=== PATIENT | female | born 1945 | race Caucasian/White ===

== ENCOUNTER 2019-08-07 07:32 | Outpatient (CLI) | payer OTHER ==
[~2019-08-07 07:32] MED LIST: AMBIEN10 MG; CYMBALTA20 MG; LIPITOR40 MG; MEDROL4 MG PO; OMEPRAZOLE20 M1; XANAX XR2 MG
== END 2019-08-07 07:37 | disposition home or self-care (01) ==
LOC: SONOGRAMA 07:32
DX: R10.84 Generalized abdominal pain (principal); N18.3 Chronic kidney disease, stage 3 (moderate); R31.29 Other microscopic hematuria

== ENCOUNTER 2019-09-05 08:07 | Emergency (ER) | payer OTHER ==
[~2019-09-05] VITALS: Ht 157.5 cm; Wt 61.2 kg
[2019-09-05] MEDS ORDERED: PANADOL EXTRA500 MG (08:27)
[2019-09-05] MEDS ORDERED: DRAMAMINE LESS25 MG (08:28)
[2019-09-05] MEDS ORDERED: VITAMIN D2400 UNIT (08:28)
[2019-09-05] MEDS ORDERED: ACID CONTROL150 MG (08:29)
[2019-09-05] MEDS ORDERED: PRILOSEC OTC20 MG (08:29)
[2019-09-05] MEDS ORDERED: NORTRIPTYLINE (08:30)
== END 2019-09-05 11:55 | disposition home or self-care (01) ==
LOC: ER 08:07
DX: B34.9 Viral infection, unspecified (principal)

== ENCOUNTER 2019-09-13 14:42 | Outpatient (CLI) | payer OTHER ==
[~2019-09-13 14:42] MED LIST changes: +ACID CONTROL150 MG; +DRAMAMINE LESS25 MG; +NORTRIPTYLINE; +PANADOL EXTRA500 MG; +PRILOSEC OTC20 MG; +VITAMIN D2400 UNIT
== END 2019-09-13 14:46 | disposition home or self-care (01) ==
LOC: RAD 14:42
DX: J30.0 Vasomotor rhinitis (principal); J98.01 Acute bronchospasm; R05 Cough; J32.8 Other chronic sinusitis

== ENCOUNTER 2019-09-17 13:03 | Outpatient (CLI) | payer OTHER | END 2019-09-17 13:10 | disposition home or self-care (01) | LOC: MAMO-SONO 13:03 | DX: Z85.3 Personal history of malignant neoplasm of breast (principal) ==

== ENCOUNTER 2021-04-13 18:41 | Emergency (ER) | payer OTHER ==
[~2021-04-13] VITALS: Ht 157.5 cm; Wt 61.7 kg
== END 2021-04-13 21:47 | disposition home or self-care (01) ==
LOC: ER 18:41
DX: S90.31XA Contusion of right foot, initial encounter (principal); M12.571 Traumatic arthropathy, right ankle and foot; W20.8XXA Other cause of strike by thrown, projected or falling object, initial encounter; Y93.89 Activity, other specified; Y92.018 Other place in single-family (private) house as the place of occurrence of the external cause; Y99.8 Other external cause status

== ENCOUNTER → 2021-06-19 | Emergency (ER) | payer OTHER ==
[~2021-06-19] VITALS: Ht 157.5 cm; Wt 63.0 kg
== END | disposition home or self-care (01) ==
LOC: ER 16:36
DX: U07.1 COVID-19 (principal)

== ENCOUNTER 2022-03-20 18:43 | Emergency (ER) | payer OTHER ==
[~2022-03-20] VITALS: Ht 157.5 cm; Wt 62.1 kg
== END 2022-03-20 21:43 | disposition home or self-care (01) ==
LOC: ER 18:43
DX: R10.13 Epigastric pain (principal); Z88.1 Allergy status to other antibiotic agents; Z88.6 Allergy status to analgesic agent; E78.00 Pure hypercholesterolemia, unspecified; G30.9 Alzheimer's disease, unspecified; F02.80 Dementia in other diseases classified elsewhere, unspecified severity, without behavioral disturbance, psychotic disturbance, mood disturbance, and anxiety

== ENCOUNTER 2022-04-25 10:59 | Emergency (ER) | payer OTHER ==
[~2022-04-25] VITALS: Ht 157.5 cm; Wt 62.6 kg
== END 2022-04-25 18:30 | disposition home or self-care (01) ==
LOC: ER 10:59
DX: R10.84 Generalized abdominal pain (principal); K59.00 Constipation, unspecified; Z88.8 Allergy status to other drugs, medicaments and biological substances

== ENCOUNTER 2023-08-22 11:39 | Outpatient (CLI) | payer OTHER | END 2023-08-22 11:44 | disposition home or self-care (01) | LOC: RAD 11:39 | PROVIDERS: ATTEND Specialist | DX: C50.412 Malignant neoplasm of upper-outer quadrant of left female breast (principal); Z88.1 Allergy status to other antibiotic agents; Z88.6 Allergy status to analgesic agent ==

== ENCOUNTER 2023-08-22 12:07 | Outpatient (CLI) | payer OTHER | END 2023-08-22 14:16 | disposition home or self-care (01) | LOC: EKG 12:07 | PROVIDERS: ATTEND Specialist | DX: C50.412 Malignant neoplasm of upper-outer quadrant of left female breast (principal); I10 Essential (primary) hypertension ==

== ENCOUNTER 2023-08-30 20:01 | Emergency (ER) | payer OTHER ==
[~2023-08-30] VITALS: Ht 157.5 cm; Wt 65.8 kg
== END 2023-08-30 21:55 | disposition home or self-care (01) ==
LOC: ER 20:01
DX: L29.8 Other pruritus (principal); T78.8XXA Other adverse effects, not elsewhere classified, initial encounter; X58.XXXA Exposure to other specified factors, initial encounter; Z88.8 Allergy status to other drugs, medicaments and biological substances

== ENCOUNTER 2023-09-13 09:00 | Inpatient (IN) | payer OTHER ==
[~2023-09-13] VITALS: Ht 157.5 cm; Wt 63.5 kg
[2023-09-13] MEDS ORDERED: PLAVIX75 MG PO (13:19)
[2023-09-13] MEDS ORDERED: ECOTRIN81 MG PO (13:20)
== END 2023-09-20 09:20 | disposition home or self-care (01) | DRG 581 ==
LOC: O/R 09-19 06:49 → SURH 09-19 09:00 → SURG 09-19 16:17
PROVIDERS: ADMIT Specialist; ATTEND Specialist
PROC: 0HBU0ZZ Excision of Left Breast, Open Approach (ICD-10-PCS; 2023-09-19)
PROC: 07B60ZZ Excision of Left Axillary Lymphatic, Open Approach (ICD-10-PCS; principal; 2023-09-19 11:45)
DX: C50.412 Malignant neoplasm of upper-outer quadrant of left female breast (principal); Z20.822 Contact with and (suspected) exposure to COVID-19

== ENCOUNTER 2023-11-02 07:26 | Outpatient (CLI) | payer OTHER ==
[~2023-11-02 07:26] MED LIST changes: +ECOTRIN81 MG PO; +PLAVIX75 MG PO
== END 2023-11-02 07:29 | disposition home or self-care (01) ==
LOC: NUCLEAR 07:26
PROVIDERS: ATTEND Internal Medicine Hematology & Oncology
DX: C50.111 Malignant neoplasm of central portion of right female breast (principal); C50.412 Malignant neoplasm of upper-outer quadrant of left female breast; E78.2 Mixed hyperlipidemia; F33.9 Major depressive disorder, recurrent, unspecified; K29.70 Gastritis, unspecified, without bleeding
CPT/HCPCS: 78815; A9552

== ENCOUNTER 2024-07-02 10:05 | Outpatient (CLI) | payer OTHER ==
[~2024-07-02 10:05] MED LIST changes: +AMOX-CLAV 875-1 EAC1 PO; +QC TUSSIN DM L118 ML PO
[2024-07-02 10:50] LABS: HEMATOCRIT 31.5 % (36.0-45.00); HEMOGLOBIN 10.9 g/dL (12.0-15.00); MEAN CELL VOLUME 87.4 fL (80.00-100.00); MEAN CORPUSCULAR HEMOGLOBIN 30.2 pg (27.00-32.0); MEAN CORPUSCULAR HGB CONC 34.5 g/dl (32.0-36.0); PLATELET COUNT 288 K/uL (150-450); RED CELL DISTRIBUTION WIDTH 14.1 % (11.5-14.5)
[2024-07-02 11:32] LABS: ALBUMIN 3.8 gm/dL (3.4-5.0); BILIRUBIN TOTAL 0.34 mg/dL (0.3-1.2); CALCIUM 9.1 mg/dL (8.5-10.1); CREATININE SERUM 1.06 mg/dL (0.55-1.02); GFR 50.13; GLOBULINA 3.5 G/DL (2.4-3.5); POTASSIUM 4.11 mEq/L (3.5-5.1); T4 FREE 0.77 NG/ML (0.76-1.46); TOTAL PROTEIN 7.3 gm/dL (6.4-8.2)
[2024-07-02 12:54] LABS: MANUAL PLATELET COUNT 356
[2024-07-02 12:55] LABS: PLATELET ESTIMATE NORMAL (NORMAL)
[2024-07-02 13:41] LABS: FOLIC ACID > 20.00 ng/ml (4.78-20)
[2024-07-03 09:10] LABS: ANTI THYROID PEROXIDASE < 9 IU/mL (0-34); CA 125 7.9 U/mL (0.0-38.1); CA 15-3 23.2 U/mL (0.0-25.0); CA 19-9 24 U/mL (0-35)
[2024-07-03 11:08] LABS: hgb a 97.5 % (96.4-98.8); hgb a2 2.5 % (1.8-3.2); hgb f 0 % (0.0-2.0); hgb s 0 % (0.0)
[2024-07-04 09:09] LABS: INTRINSIC FACTOR BLOCKING AB 1.1 AU/mL (0.0-1.1)
[2024-07-04 15:11] LABS: PARIETAL CELL ANTIBODIES 1.6 Units (0.0-20.0)
== END 2024-07-02 10:14 | disposition home or self-care (01) ==
LOC: LAB 10:05
PROVIDERS: ATTEND Internal Medicine Hematology & Oncology
DX: C50.111 Malignant neoplasm of central portion of right female breast (principal); E03.9 Hypothyroidism, unspecified; C50.412 Malignant neoplasm of upper-outer quadrant of left female breast; E78.2 Mixed hyperlipidemia; F33.9 Major depressive disorder, recurrent, unspecified; K29.70 Gastritis, unspecified, without bleeding; D50.8 Other iron deficiency anemias; R79.9 Abnormal finding of blood chemistry, unspecified; R74.02 Elevation of levels of lactic acid dehydrogenase [LDH]; I10 Essential (primary) hypertension; K76.89 Other specified diseases of liver; D63.8 Anemia in other chronic diseases classified elsewhere; C50.919 Malignant neoplasm of unspecified site of unspecified female breast; D51.1 Vitamin B12 deficiency anemia due to selective vitamin B12 malabsorption with proteinuria; D50.1 Sideropenic dysphagia; D63.1 Anemia in chronic kidney disease

== ENCOUNTER → 2024-09-27 10:10 | Outpatient (CLI) | payer OTHER ==
[2024-09-27 11:12] LABS: HEMATOCRIT 31.5 % (36.0-45.00); HEMOGLOBIN 10.7 g/dL (12.0-15.00); MEAN CELL VOLUME 89.9 fL (80.00-100.00); MEAN CORPUSCULAR HEMOGLOBIN 30.6 pg (27.00-32.0); PLATELET COUNT 286 K/uL (150-450); RED BLOOD COUNT 3.51 M/uL (4.00-6.00); RED CELL DISTRIBUTION WIDTH 12.7 % (11.5-14.5)
[2024-09-27 11:16] LABS: PH,URINE 5.5 (5.0-8.0); URINE APPEARANCE Clear; URINE BILIRRUBIN Negative (NEGATIVE); URINE BLOOD Negative; URINE COLOR Yellow; URINE GLUCOSE Negative (NEGATIVE); URINE KETONE Negative (NEGATIVE); URINE LEUKOCYTE Negative; URINE NITRATE Negative; URINE PROTEIN Negative (NEGATIVE); URINE UROBILINOGEN 0.2 E.U./dl
[2024-09-27 11:17] LABS: URINE BACTERIA 13.8 uL (0.0-1933); URINE EPITHELIAL CELLS 2.1 uL (0.0-38.8); URINE WBC 2.1 uL (0.0-23.2)
[2024-09-27 11:45] LABS: URINE CAST 1.37 uL (0.0-1.40); URINE RBC 1.5 uL (0.0-20.8)
[2024-09-27 11:54] LABS: INR < 0.93; PARTIAL THROMBOPLASTIN TIME 26.9 SECONDS (22.0-34.0); PROTHROMBIN TIME 10.1 SECONDS (9.0-11.5)
[2024-09-27 12:22] LABS: MANUAL PLATELET COUNT 468
[2024-09-27 12:23] LABS: PLATELET ESTIMATE INCREASED (NORMAL)
[2024-09-27 12:24] LABS: ALBUMIN 3.8 gm/dL (3.4-5.0); ALKALINE PHOSPHATASE 57 U/L (50-136); ALT/SGPT 28 U/L (12-78); ANION GAP 9 (10.0-20.0); AST/SGOT 25 U/L (15-37); BILIRUBIN TOTAL 0.27 mg/dL (0.3-1.2); BILIRUBIN,CONJUGATED < 0.10 mg/dL (0.0-0.2); BILIRUBIN,UNCONJUGATED 0.17 mg/dL (0.0-0.6); BLOOD UREA NITROGEN 19 mg/dL (7-18); BUN CREA RATIO 18 (7.0-25.0); CALCIUM 9.2 mg/dL (8.5-10.1); CARBON DIOXIDE 28 mEq/L (21-32); CHLORIDE 104 mmol/L (98-107); CHOL HDL RATIO 2.8 (0-5.0); CHOLESTEROL 178 mg/dL (0-200); CREATININE SERUM 1.05 mg/dL (0.55-1.02); GFR 50.56; GLOBULINA 3.4 G/DL (2.4-3.5); GLUCOSE FASTING 105 mg/dL (65-100); HDL 63 mg/dl (40-60); LDH 175 U/L (84-246); LDL 100 mg/dl (0-130); OSMOLALITY SERUM 275 MOSM/KG (275-295); POTASSIUM 4.99 mEq/L (3.5-5.1); SODIUM 136 mmol/L (136-145); TOTAL PROTEIN 7.2 gm/dL (6.4-8.2); TRIGLYCERIDES 77 mg/dL (0-150); VLDL 15 (0-39)
[2024-09-27 12:34] LABS: FREE TRIODOTIRONINE 2.37 pg/ml (2.18-3.98); T4 FREE 0.76 NG/ML (0.76-1.46)
== END | disposition home or self-care (01) ==
LOC: LAB 10:10
PROVIDERS: ATTEND Internal Medicine Hematology & Oncology
DX: C50.111 Malignant neoplasm of central portion of right female breast (principal); C50.412 Malignant neoplasm of upper-outer quadrant of left female breast; E78.2 Mixed hyperlipidemia; F33.9 Major depressive disorder, recurrent, unspecified; K29.70 Gastritis, unspecified, without bleeding; D50.8 Other iron deficiency anemias; R79.9 Abnormal finding of blood chemistry, unspecified; K76.89 Other specified diseases of liver; R74.02 Elevation of levels of lactic acid dehydrogenase [LDH]; I10 Essential (primary) hypertension; C50.919 Malignant neoplasm of unspecified site of unspecified female breast; C25.9 Malignant neoplasm of pancreas, unspecified; R97.0 Elevated carcinoembryonic antigen [CEA]; E03.9 Hypothyroidism, unspecified; N39.9 Disorder of urinary system, unspecified; E11.65 Type 2 diabetes mellitus with hyperglycemia; D64.9 Anemia, unspecified; D68.8 Other specified coagulation defects; K75.81 Nonalcoholic steatohepatitis (NASH); N39.0 Urinary tract infection, site not specified

== ENCOUNTER → 2024-11-14 | Emergency (ER) | payer OTHER ==
[~2024-11-14] VITALS: Ht 157.5 cm; Wt 65.8 kg
[~2024-11-14] MED LIST changes: +ACID REDUCER20 M1 PO; +PEPCID AC20 MG PO; +[UNRECOGNIZED DRUG - OTHER]; +[UNRECOGNIZED DRUG - OTHER] PO
== END | disposition left against medical advice (07) ==
LOC: ER 16:42
DX: Z53.21 Procedure and treatment not carried out due to patient leaving prior to being seen by health care provider (principal)

== ENCOUNTER 2025-01-10 11:19 | Outpatient (CLI) | payer OTHER ==
[2025-01-10 12:31] LABS: PH,URINE 5.5 (5.0-8.0); URINE APPEARANCE Clear; URINE BILIRRUBIN Negative (NEGATIVE); URINE BLOOD Negative; URINE COLOR Yellow; URINE GLUCOSE Negative (NEGATIVE); URINE KETONE Negative (NEGATIVE); URINE LEUKOCYTE Negative; URINE NITRATE Negative; URINE PROTEIN Negative (NEGATIVE); URINE UROBILINOGEN 0.2 E.U./dl
[2025-01-10 12:32] LABS: HEMATOCRIT 31.2 % (36.0-45.00); MEAN CELL VOLUME 89.6 fL (80.00-100.00); MEAN CORPUSCULAR HEMOGLOBIN 31.6 pg (27.00-32.0); MEAN CORPUSCULAR HGB CONC 35.3 g/dl (32.0-36.0); PLATELET COUNT 311 K/uL (150-450); RED BLOOD COUNT 3.49 M/uL (4.00-6.00); RED CELL DISTRIBUTION WIDTH 13.1 % (11.5-14.5)
[2025-01-10 12:35] LABS: URINE BACTERIA 12.2 uL (0.0-1933); URINE CAST 6.92 uL (0.0-1.40); URINE EPITHELIAL CELLS 2.6 uL (0.0-38.8); URINE RBC 2.5 uL (0.0-20.8)
[2025-01-10 13:02] LABS: URIC ACID 4.7 mg/dL (2.5-7.5)
[2025-01-10 13:04] LABS: % SATURACION 32.7 % (15-50); ALBUMIN 3.8 gm/dL (3.4-5.0); BILIRUBIN TOTAL 0.3 mg/dL (0.3-1.2); CALCIUM 9.1 mg/dL (8.5-10.1); CHOL HDL RATIO 3.5 (0-5.0); CREATININE SERUM 1.18 mg/dL (0.55-1.02); FREE TRIODOTIRONINE 2.3 pg/ml (2.18-3.98); GFR 44.18; GLOBULINA 3.6 G/DL (2.4-3.5); PHOSPHOROUS 3.2 mg/dL (2.5-4.9); POTASSIUM 4.42 mEq/L (3.5-5.1); T4 FREE 0.82 NG/ML (0.76-1.46); TOTAL PROTEIN 7.4 gm/dL (6.4-8.2); TSH 1.8 uIU/mL (0.358-3.74)
[2025-01-10 13:15] LABS: C-REACTIVE PROTEIN 0.67 MG/DL (0.00-0.29)
[2025-01-10 13:24] LABS: ERYTHROCYTE SEDIMENTATION RATE 48 mm/hr
[2025-01-10 13:36] LABS: VITAMIN D3 25 HYDROXY 93.49 ng/ml (30-120)
[2025-01-10 14:52] LABS: MANUAL PLATELET COUNT 482
[2025-01-10 14:53] LABS: PLATELET ESTIMATE INCREASED (NORMAL)
== END 2025-01-10 11:36 | disposition home or self-care (01) ==
LOC: LAB 11:19
PROVIDERS: ATTEND Internal Medicine Hematology & Oncology
DX: C50.111 Malignant neoplasm of central portion of right female breast (principal); C50.412 Malignant neoplasm of upper-outer quadrant of left female breast; E78.2 Mixed hyperlipidemia; F33.9 Major depressive disorder, recurrent, unspecified; K29.70 Gastritis, unspecified, without bleeding; D50.8 Other iron deficiency anemias; R79.9 Abnormal finding of blood chemistry, unspecified; I10 Essential (primary) hypertension; R74.02 Elevation of levels of lactic acid dehydrogenase [LDH]; K76.89 Other specified diseases of liver; D51.8 Other vitamin B12 deficiency anemias; C50.919 Malignant neoplasm of unspecified site of unspecified female breast; R97.8 Other abnormal tumor markers; C56.9 Malignant neoplasm of unspecified ovary; R97.0 Elevated carcinoembryonic antigen [CEA]; E03.9 Hypothyroidism, unspecified; E11.21 Type 2 diabetes mellitus with diabetic nephropathy; N39.0 Urinary tract infection, site not specified; D64.9 Anemia, unspecified; J45.998 Other asthma; E11.65 Type 2 diabetes mellitus with hyperglycemia; M35.3 Polymyalgia rheumatica; E55.9 Vitamin D deficiency, unspecified; N18.30 Chronic kidney disease, stage 3 unspecified; D63.1 Anemia in chronic kidney disease; E78.5 Hyperlipidemia, unspecified

== ENCOUNTER 2025-05-02 10:07 | Outpatient (CLI) | payer OTHER ==
[2025-05-02 11:00] LABS: BASO % 0.5 % (0.1-1.2); EOS # 0.06 (0.04-0.54); EOS % 1.1 % (0.7-7.0); HEMATOCRIT 29.8 % (34.1-44.9); HEMOGLOBIN 10.3 g/dL (11.2-15.7); LYMPH # 1.47 (1.18-3.74); LYMPH % 26.6 % (19.3-53.1); MEAN CORPUSCULAR HEMOGLOBIN 31.1 pg (25.6-32.2); MONO # 0.54 (0.24-0.82); MONO % 9.8 % (4.7-12.5); NEUT # 3.41 (1.56-6.13); NEUT % 61.8 % (34.0-71.1); PLATELET COUNT 268 K/uL (163-369); RED BLOOD COUNT 3.31 M/uL (3.93-5.22); RED CELL DISTRIBUTION WIDTH 12.1 % (11.6-14.4)
[2025-05-02 11:37] LABS: ALBUMIN 3.8 gm/dL (3.4-5.0); BILIRUBIN TOTAL 0.3 mg/dL (0.3-1.2); CALCIUM 9.3 mg/dL (8.5-10.1); CREATININE SERUM 1.06 mg/dL (0.55-1.02); GFR 50.01; GLOBULINA 3.3 G/DL (2.4-3.5); POTASSIUM 4.26 mEq/L (3.5-5.1); T4 FREE 0.83 NG/ML (0.76-1.46); TOTAL PROTEIN 7.1 gm/dL (6.4-8.2); TSH 1.86 uIU/mL (0.358-3.74)
[2025-05-02 12:04] LABS: FOLIC ACID > 20.00 ng/ml (4.78-20)
[2025-05-02 13:25] LABS: MANUAL PLATELET COUNT 367
[2025-05-04 07:09] LABS: CA 15-3 19.9 U/mL (0.0-25.0)
[2025-05-06 01:08] LABS: CA 125 7.4 U/mL (0.0-38.1)
== END 2025-05-02 10:16 | disposition home or self-care (01) ==
LOC: LAB 10:07
PROVIDERS: ATTEND Internal Medicine Hematology & Oncology
DX: D50.8 Other iron deficiency anemias (principal); R79.9 Abnormal finding of blood chemistry, unspecified; I10 Essential (primary) hypertension; R74.02 Elevation of levels of lactic acid dehydrogenase [LDH]; K76.89 Other specified diseases of liver; D51.8 Other vitamin B12 deficiency anemias; D63.1 Anemia in chronic kidney disease; C50.919 Malignant neoplasm of unspecified site of unspecified female breast; R97.8 Other abnormal tumor markers; C25.9 Malignant neoplasm of pancreas, unspecified; E03.8 Other specified hypothyroidism; C50.111 Malignant neoplasm of central portion of right female breast; C50.412 Malignant neoplasm of upper-outer quadrant of left female breast; E78.2 Mixed hyperlipidemia; F33.9 Major depressive disorder, recurrent, unspecified; K29.70 Gastritis, unspecified, without bleeding

== ENCOUNTER 2025-06-05 14:34 | Outpatient (CLI) | payer OTHER | END 2025-06-05 14:38 | disposition home or self-care (01) | LOC: SONOGRAMA 14:34 | PROVIDERS: ATTEND Internal Medicine Hematology & Oncology | DX: E04.2 Nontoxic multinodular goiter (principal); C50.111 Malignant neoplasm of central portion of right female breast; C50.412 Malignant neoplasm of upper-outer quadrant of left female breast; E78.2 Mixed hyperlipidemia; F33.9 Major depressive disorder, recurrent, unspecified; K29.70 Gastritis, unspecified, without bleeding ==

== ENCOUNTER → 2025-07-18 11:12 | Outpatient (CLI) | payer OTHER ==
[2025-07-18 12:15] LABS: URINE APPEARANCE Clear; URINE BILIRRUBIN Negative (NEGATIVE); URINE BLOOD Negative; URINE COLOR Yellow; URINE GLUCOSE Negative (NEGATIVE); URINE KETONE Negative (NEGATIVE); URINE LEUKOCYTE Trace; URINE NITRATE Negative; URINE PROTEIN Negative (NEGATIVE); URINE UROBILINOGEN 0.2 E.U./dl
[2025-07-18 12:19] LABS: URINE BACTERIA 9.5 uL (0.0-1933); URINE CAST 1.90 uL (0.0-1.40); URINE EPITHELIAL CELLS 2.7 uL (0.0-38.8); URINE RBC 2.3 uL (0.0-20.8); URINE WBC 12.7 uL (0.0-23.2)
[2025-07-18 12:39] LABS: BASO % 0.2 % (0.1-1.2); EOS # 0.03 (0.04-0.54); EOS % 0.4 % (0.7-7.0); LYMPH # 2.13 (1.18-3.74); LYMPH % 25.8 % (19.3-53.1); MEAN PLATELET VOLUME 8.90 fl (9.4-12.4); MONO # 0.64 (0.24-0.82); MONO % 7.8 % (4.7-12.5); NEUT # 5.40 (1.56-6.13); NEUT % 65.4 % (34.0-71.1); RED CELL DISTRIBUTION WIDTH 12.4 % (11.6-14.4)
[2025-07-18 12:49] LABS: INR 0.96
[2025-07-18 13:21] LABS: ALT/SGPT 32 U/L (12-78); AST/SGOT 23 U/L (15-37); BILIRUBIN TOTAL 0.38 mg/dL (0.3-1.2); BILIRUBIN,CONJUGATED < 0.10 mg/dL (0.0-0.2); BUN CREA RATIO 17 (7.0-25.0); CHOL HDL RATIO 2.3 (0-5.0); CREATININE SERUM 1.09 mg/dL (0.55-1.02); FE 91.0 ug/dl (50-170); GFR 48.30; GLOBULINA 3.6 G/DL (2.4-3.5); GLUCOSE FASTING 89 mg/dL (65-100); HDL 84 mg/dl (40-60); LDH 179 U/L (84-246); LDL 93 mg/dl (0-130); OSMOLALITY SERUM 270 MOSM/KG (275-295); TSH 3.210 uIU/mL (0.358-3.74); VLDL 12 (0-39)
[2025-07-18 13:50] LABS: FOLIC ACID > 20.00 ng/ml (4.78-20); VITAMIN D3 25 HYDROXY 113.10 ng/ml (30-120)
== END | disposition home or self-care (01) ==
LOC: LAB 11:12
PROVIDERS: ATTEND Internal Medicine Hematology & Oncology
DX: E03.9 Hypothyroidism, unspecified (principal); E78.2 Mixed hyperlipidemia; D64.9 Anemia, unspecified; D68.8 Other specified coagulation defects; K75.81 Nonalcoholic steatohepatitis (NASH); E55.9 Vitamin D deficiency, unspecified; D50.8 Other iron deficiency anemias; I10 Essential (primary) hypertension; R74.02 Elevation of levels of lactic acid dehydrogenase [LDH]; K76.89 Other specified diseases of liver; D63.1 Anemia in chronic kidney disease; C50.919 Malignant neoplasm of unspecified site of unspecified female breast; C25.9 Malignant neoplasm of pancreas, unspecified; R97.0 Elevated carcinoembryonic antigen [CEA]; C50.111 Malignant neoplasm of central portion of right female breast; C50.412 Malignant neoplasm of upper-outer quadrant of left female breast; F33.9 Major depressive disorder, recurrent, unspecified; K29.70 Gastritis, unspecified, without bleeding; N18.30 Chronic kidney disease, stage 3 unspecified; E11.21 Type 2 diabetes mellitus with diabetic nephropathy; N30.00 Acute cystitis without hematuria; E78.5 Hyperlipidemia, unspecified